=== PATIENT | female | born 1960 | race Caucasian/White ===

== ENCOUNTER 2021-05-08 14:07 | Inpatient (IN) ==
[2021-05-08] MEDS ORDERED: Isovue-370 500 ML BOTTLE IVP ONE (15:19)
[2021-05-08 16:13] LABS: Basophils % 0.4 %; Eosinophils # 0.1 K/mcL (0.0-0.6); Eosinophils % 1.9 %; Hematocrit 34.2 % (35.3-44.9); Hemoglobin 11.2 g/dL (11.5-15.4); Immature Granulocytes % 0.4 % (0-4); Lymphocytes # 0.7 K/mcL (0.6-4.6); Mean Corpuscular HGB Conc 32.7 g/dL (31.6-35.5); Mean Corpuscular Hemoglobin 29.3 pg (28.0-33.3); Mean Corpuscular Volume 89.5 fL (83.0-100.0); Mean Platelet Volume 10.5 fL (9.4-12.4); Monocytes # 0.3 K/mcL (0.0-1.3); Monocytes % 10.4 %; Neutrophils # 1.7 K/mcL (1.6-8.9); Platelet Count 363 K/mcL (140-400); Red Blood Count 3.82 M/mcL (3.82-4.97); Red Cell Distribution Width 13.5 % (11.5-14.5); Segmented Neutrophils % 61.9 %; White Blood Count 2.7 K/mcL (4.3-11.1)
[2021-05-08 16:22] LABS: INR 1.2; Prothrombin Time 13.4 Seconds (9.4-12.1)
[2021-05-08 16:24] LABS: Activated Partial Thrombo Time 24.5 Seconds (26.0-36.0)
[2021-05-08 16:50] LABS: Alanine Aminotransferase 22 Units/L (7-52); Albumin 3.9 g/dL (3.5-5.7); Albumin/Globulin Ratio 1.1 (1.1-2.2); Alkaline Phosphatase 102 Units/L (34-104); Aspartate Amino Transferase 14 Units/L (13-39); BUN/Creatinine Ratio 52 (6-26); Bilirubin,Direct 0.2 mg/dL (0.0-0.2); Bilirubin,Indirect 0.8 mg/dL (0.0-1.0); Blood Urea Nitrogen 29 mg/dL (6-20); Calcium 9.9 mg/dL (8.6-10.3); Carbon Dioxide 27 mEq/L (23-29); Chloride 94 mEq/L (98-107); Ethanol < 10 mg/dL (Less than 10); Globulin 3.4 g/dL (2.4-3.5); Glucose 103 mg/dL (70-105); Osmolality,Calculated 284 (280-300); Potassium 3.7 mEq/L (3.5-5.1); Sodium 134 mEq/L (136-145); Total Protein 7.3 g/dL (6.4-8.9); Troponin I < 0.03 ng/mL (< 0.04); eGFR For African Americans > 60 (> 60); eGFR For Non-African Americans > 60 (> 60)
[2021-05-08 17:02] LABS: Platelet Estimate Normal (Normal)
[2021-05-08] MEDS ORDERED: Piperacillin/Tazobactam 3.375 GM in 0.9 % Sodium Chloride Mini Bag 100 ML IVPB ONE (18:02)
[2021-05-08] MEDS ORDERED: Morphine Sulfate 2 MG/ML SYRINGE IVP ONE (19:00)
[2021-05-08] MEDS ORDERED: 0.9 % Sodium Chloride 1,000 ML IV ONE (19:11)
[2021-05-08] MEDS ORDERED: Naloxone 0.4 MG/ML INJ IVP PRN (19:40)
[2021-05-08] MEDS ORDERED: 0.9 % Sodium Chloride 1,000 ML IVC SCH (21:00)
[2021-05-08] MEDS ORDERED: *HR* Enoxaparin 40 MG/0.4 ML SYRINGE SQ ONE (22:45)
[2021-05-08] MEDS: 0.9 % Sodium Chloride 1,000 ML IVC SCH (23:34)
[2021-05-09 04:30] LABS: Basophils % 0.2 %; Eosinophils # 0.1 K/mcL (0.0-0.6); Eosinophils % 2.9 %; Immature Granulocytes % 0.5 % (0-4); Lymphocytes # 1.1 K/mcL (0.6-4.6); Lymphocytes % 25.3 %; Mean Corpuscular HGB Conc 32.4 g/dL (31.6-35.5); Mean Corpuscular Hemoglobin 29.7 pg (28.0-33.3); Mean Corpuscular Volume 91.5 fL (83.0-100.0); Mean Platelet Volume 10.6 fL (9.4-12.4); Monocytes # 0.6 K/mcL (0.0-1.3); Monocytes % 13.5 %; Neutrophils # 2.4 K/mcL (1.6-8.9); Platelet Count 326 K/mcL (140-400); Red Blood Count 3.17 M/mcL (3.82-4.97); Red Cell Distribution Width 13.4 % (11.5-14.5); Segmented Neutrophils % 57.6 %
[2021-05-09 04:33] LABS: Hemoglobin 9.4 g/dL (11.5-15.4); White Blood Count 4.2 K/mcL (4.3-11.1)
[2021-05-09 04:40] LABS: INR 1.2; Prothrombin Time 13.9 Seconds (9.4-12.1)
[2021-05-09 04:43] LABS: Activated Partial Thrombo Time 30.4 Seconds (26.0-36.0)
[2021-05-09 04:49] LABS: Alanine Aminotransferase 17 Units/L (7-52); Albumin 3.2 g/dL (3.5-5.7); Albumin/Globulin Ratio 1.2 (1.1-2.2); Alkaline Phosphatase 90 Units/L (34-104); Aspartate Amino Transferase 11 Units/L (13-39); BUN/Creatinine Ratio 45 (6-26); Bilirubin,Total 0.5 mg/dL (0.3-1.0); Blood Urea Nitrogen 22 mg/dL (6-20); Calcium 8.6 mg/dL (8.6-10.3); Carbon Dioxide 23 mEq/L (23-29); Chloride 100 mEq/L (98-107); Globulin 2.7 g/dL (2.4-3.5); Glucose 74 mg/dL (70-105); Osmolality,Calculated 282 (280-300); Phosphorous 3.4 mg/dL (2.7-4.5); Potassium 3.4 mEq/L (3.5-5.1); Sodium 135 mEq/L (136-145); Total Protein 5.9 g/dL (6.4-8.9); eGFR For African Americans > 60 (> 60); eGFR For Non-African Americans > 60 (> 60)
[2021-05-09 05:00] LABS: Platelet Estimate Normal (Normal)
[2021-05-09] MEDS: 0.9 % Sodium Chloride 1,000 ML IVC SCH ×2 (05:31→12:01)
[2021-05-09] MEDS: Piperacillin/Tazobactam 3.375 GM in 0.9 % Sodium Chloride Mini Bag 100 ML IVPB SCH ×3 (08:02→23:21)
[2021-05-09] MEDS: Ondansetron ODT 4 MG TAB.RAPDIS SL PRN (08:31)
[2021-05-09] MEDS ORDERED: Lidocaine -MPF 1% 5 ML AMPUL INFILT ONE (09:46)
[2021-05-09] MEDS: *HR* Metoprolol 5 MG/5 ML VIAL IVP PRN (12:02)
[2021-05-09] MEDS ORDERED: D10% in Water 500 ML IVC PRN (12:04)
[2021-05-09] MEDS ORDERED: D5% in Water 1,000 ML IVC PRN (12:22)
[2021-05-09] MEDS ORDERED: *HR* Dextrose 50 % in Water (Syg) 50 ML SYRINGE IVP PRN (12:22)
[2021-05-09] MEDS ORDERED: Dextrose Gel 15 GM/37.5 ML TUBE PO PRN ×2 (12:22)
[2021-05-09] MEDS ORDERED: Clinimix E 5%-15% SOLUTION 2,000 ML with MVI, adult with vitamin K 10 ML IVC SCH (17:00)
[2021-05-09] MEDS: Insulin LISPRO 300 UNITS/3 ML VIAL SUBQ SCH ×3 (17:06→23:22)
[2021-05-10] MEDS: *HR* Metoprolol 5 MG/5 ML VIAL IVP PRN ×3 (01:58→17:15)
[2021-05-10 04:16] LABS: Hematocrit 26.1 % (35.3-44.9); Hemoglobin 8.1 g/dL (11.5-15.4); Mean Corpuscular Volume 93.5 fL (83.0-100.0); Mean Platelet Volume 10.5 fL (9.4-12.4); Platelet Count 228 K/mcL (140-400); Red Blood Count 2.79 M/mcL (3.82-4.97); Red Cell Distribution Width 13.1 % (11.5-14.5); White Blood Count 4.7 K/mcL (4.3-11.1)
[2021-05-10 04:34] LABS: Alanine Aminotransferase 15 Units/L (7-52); Albumin 2.8 g/dL (3.5-5.7); Albumin/Globulin Ratio 1.2 (1.1-2.2); Alkaline Phosphatase 76 Units/L (34-104); Aspartate Amino Transferase 12 Units/L (13-39); BUN/Creatinine Ratio 32 (6-26); Bilirubin,Total 0.3 mg/dL (0.3-1.0); Blood Urea Nitrogen 13 mg/dL (6-20); Calcium 8.1 mg/dL (8.6-10.3); Carbon Dioxide 25 mEq/L (23-29); Chloride 100 mEq/L (98-107); Globulin 2.4 g/dL (2.4-3.5); Glucose 142 mg/dL (70-105); Magnesium 1.7 mg/dL (1.6-2.6); Osmolality,Calculated 275 (280-300); Phosphorous 2.3 mg/dL (2.7-4.5); Potassium 3.6 mEq/L (3.5-5.1); Sodium 131 mEq/L (136-145); Total Protein 5.2 g/dL (6.4-8.9); Triglycerides 191 mg/dL (< 150); eGFR For African Americans > 60 (> 60); eGFR For Non-African Americans > 60 (> 60)
[2021-05-10] MEDS: Insulin LISPRO 300 UNITS/3 ML VIAL SUBQ SCH ×5 (05:17→20:30)
[2021-05-10] MEDS: *HR* Enoxaparin 40 MG/0.4 ML SYRINGE SQ SCH (05:17)
[2021-05-10] MEDS ORDERED: Morphine Sulfate 2 MG/ML SYRINGE IVP ONE (08:35)
[2021-05-10] MEDS: Piperacillin/Tazobactam 3.375 GM in 0.9 % Sodium Chloride Mini Bag 100 ML IVPB SCH ×2 (08:46→15:56)
[2021-05-10] MEDS ORDERED: Fat Emulsion 250 ML IVPB SCH (17:00)
[2021-05-10] MEDS ORDERED: Clinimix E 5%-15% SOLUTION 2,000 ML with MVI, adult with vitamin K 10 ML IVC SCH (17:00)
[2021-05-10 17:19] LABS: Bilirubin,Urine Negative (Negative); Blood,Urine Negative (Negative); Clarity,Urine Clear (Clear); Color,Urine Colorless (Yellow); Glucose,Urine (UA) Normal (Normal); Ketones,Urine Negative (Negative); Leukocyte Esterase,Urine Negative (Negative); Nitrite,Urine Negative (Negative); Protein,Urine Trace mg/dL (Neg-Trace); Specific Gravity,Urine 1.015 (1.010-1.025); Urobilinogen,Urine Normal (Normal)
[2021-05-10 17:34] LABS: Amphetamine Screen,Urine Negative ng/mL (Cutoff=1000); Barbiturate Screen,Urine Negative ng/mL (Cutoff=200); Benzodiazepines Screen,Urine Negative ng/mL (Cutoff=200); Cannabinoid Screen,Urine Negative ng/mL (Cutoff = 50); Cocaine Screen,Urine Negative ng/mL (Cutoff= 300); Opiate Screen,Urine Positive ng/mL (Cutoff=300); Phencyclidine Screen,Urine Negative ng/mL (Cutoff=25)
[2021-05-11] MEDS: Piperacillin/Tazobactam 3.375 GM in 0.9 % Sodium Chloride Mini Bag 100 ML IVPB SCH ×2 (00:34→11:23)
[2021-05-11] MEDS: Insulin LISPRO 300 UNITS/3 ML VIAL SUBQ SCH ×6 (00:35→20:41)
[2021-05-11] MEDS: *HR* Enoxaparin 40 MG/0.4 ML SYRINGE SQ SCH (05:06)
[2021-05-11 06:41] LABS: Hematocrit 26.4 % (35.3-44.9); Hemoglobin 8.7 g/dL (11.5-15.4); Mean Corpuscular Hemoglobin 29.8 pg (28.0-33.3); Mean Corpuscular Volume 90.4 fL (83.0-100.0); Mean Platelet Volume 10.7 fL (9.4-12.4); Nucleated Red Blood Cells 0.7 /100 WBC (0); Platelet Count 210 K/mcL (140-400); Red Blood Count 2.92 M/mcL (3.82-4.97); White Blood Count 4.4 K/mcL (4.3-11.1)
[2021-05-11 06:58] LABS: Alanine Aminotransferase 13 Units/L (7-52); Albumin 2.9 g/dL (3.5-5.7); Albumin/Globulin Ratio 1.1 (1.1-2.2); Alkaline Phosphatase 79 Units/L (34-104); Aspartate Amino Transferase 12 Units/L (13-39); BUN/Creatinine Ratio 24 (6-26); Bilirubin,Indirect 0.2 mg/dL (0.0-1.0); Bilirubin,Total 0.2 mg/dL (0.3-1.0); Blood Urea Nitrogen 11 mg/dL (6-20); Calcium 8.5 mg/dL (8.6-10.3); Carbon Dioxide 28 mEq/L (23-29); Chloride 99 mEq/L (98-107); Globulin 2.7 g/dL (2.4-3.5); Glucose 131 mg/dL (70-105); Magnesium 1.7 mg/dL (1.6-2.6); Osmolality,Calculated 277 (280-300); Phosphorous 2.8 mg/dL (2.7-4.5); Potassium 3.4 mEq/L (3.5-5.1); Sodium 133 mEq/L (136-145); Total Protein 5.6 g/dL (6.4-8.9); eGFR For African Americans > 60 (> 60); eGFR For Non-African Americans > 60 (> 60)
[2021-05-11] MEDS ORDERED: Isovue-370 500 ML BOTTLE IVP ONE (07:46)
[2021-05-11 07:53] LABS: Anisocytosis 1+ (Not Present); Eosinophils # 0.2 K/mcL (0.0-0.6); Lymphocytes # 1.3 K/mcL (0.6-4.6); Monocytes # 0.3 K/mcL (0.0-1.3); Neutrophils # 2.6 K/mcL (1.6-8.9); Platelet Estimate Normal (Normal); Polychromasia 1+ (Not Present); Reactive Lymphocytes Present (Not Present)
[2021-05-11] MEDS ORDERED: Isovue-370 500 ML BOTTLE PO ONE ×2 (10:25→10:26)
[2021-05-11] MEDS ORDERED: D10% in Water 500 ML IVC PRN (12:42)
[2021-05-11] MEDS: Pantoprazole 40 MG VIAL IVP SCH (14:18)
[2021-05-11] MEDS ORDERED: Clinimix E 5%-15% SOLUTION 2,000 ML with MVI, adult with vitamin K 10 ML IVC SCH (17:00)
[2021-05-11] MEDS: *HR* Metoprolol 5 MG/5 ML VIAL IVP PRN (17:02)
[2021-05-12] MEDS: Piperacillin/Tazobactam 3.375 GM in 0.9 % Sodium Chloride Mini Bag 100 ML IVPB SCH ×4 (00:57→17:04)
[2021-05-12] MEDS: Insulin LISPRO 300 UNITS/3 ML VIAL SUBQ SCH ×6 (01:00→21:11)
[2021-05-12 04:51] LABS: Basophils % 0.6 %; Eosinophils % 0.6 %; Hematocrit 26.7 % (35.3-44.9); Hemoglobin 8.7 g/dL (11.5-15.4); Immature Granulocytes % 1.1 % (0-4); Lymphocytes # 1.2 K/mcL (0.6-4.6); Lymphocytes % 32.1 %; Mean Corpuscular HGB Conc 32.6 g/dL (31.6-35.5); Mean Corpuscular Hemoglobin 29.7 pg (28.0-33.3); Mean Corpuscular Volume 91.1 fL (83.0-100.0); Mean Platelet Volume 10.6 fL (9.4-12.4); Monocytes # 0.7 K/mcL (0.0-1.3); Neutrophils # 1.7 K/mcL (1.6-8.9); Nucleated Red Blood Cells 0.8 /100 WBC (0); Platelet Count 222 K/mcL (140-400); Red Blood Count 2.93 M/mcL (3.82-4.97); Red Cell Distribution Width 13.2 % (11.5-14.5); Segmented Neutrophils % 47.6 %; White Blood Count 3.6 K/mcL (4.3-11.1)
[2021-05-12 04:56] LABS: Alanine Aminotransferase 15 Units/L (7-52); Albumin 2.9 g/dL (3.5-5.7); Alkaline Phosphatase 77 Units/L (34-104); Aspartate Amino Transferase 14 Units/L (13-39); BUN/Creatinine Ratio 36 (6-26); Bilirubin,Total 0.3 mg/dL (0.3-1.0); Blood Urea Nitrogen 14 mg/dL (6-20); Calcium 8.7 mg/dL (8.6-10.3); Carbon Dioxide 27 mEq/L (23-29); Chloride 100 mEq/L (98-107); Globulin 2.9 g/dL (2.4-3.5); Glucose 124 mg/dL (70-105); Magnesium 1.8 mg/dL (1.6-2.6); Osmolality,Calculated 274 (280-300); Phosphorous 3.8 mg/dL (2.7-4.5); Potassium 4.2 mEq/L (3.5-5.1); Sodium 131 mEq/L (136-145); Total Protein 5.8 g/dL (6.4-8.9); eGFR For African Americans > 60 (> 60); eGFR For Non-African Americans > 60 (> 60)
[2021-05-12 05:17] LABS: Ferritin 307 ng/mL (10-120); Iron < 10 mcg/dL (50-170); Transferrin 156 mg/dL (203-362)
[2021-05-12 05:21] LABS: Folate 11.9 ng/mL (3.0-16.0)
[2021-05-12] MEDS: *HR* Enoxaparin 40 MG/0.4 ML SYRINGE SQ SCH (05:26)
[2021-05-12] MEDS: Pantoprazole 40 MG VIAL IVP SCH (05:26)
[2021-05-12 05:41] LABS: Anisocytosis 1+ (Not Present); Hypochromasia Present (Not Present); Microcytosis Present (Not Present); Platelet Estimate Normal (Normal); Polychromasia 1+ (Not Present)
[2021-05-12 05:42] LABS: Reactive Lymphocytes Present (Not Present)
[2021-05-12] MEDS: Sucralfate 1 GM TABLET PO SCH ×3 (12:48→21:18)
[2021-05-13] MEDS: Insulin LISPRO 300 UNITS/3 ML VIAL SUBQ SCH ×6 (00:25→21:07)
[2021-05-13] MEDS: Piperacillin/Tazobactam 3.375 GM in 0.9 % Sodium Chloride Mini Bag 100 ML IVPB SCH ×3 (00:48→17:55)
[2021-05-13] MEDS: *HR* Enoxaparin 40 MG/0.4 ML SYRINGE SQ SCH (06:42)
[2021-05-13 07:02] LABS: Hemoglobin 8.9 g/dL (11.5-15.4); Mean Corpuscular Hemoglobin 29.4 pg (28.0-33.3); Mean Corpuscular Volume 89.1 fL (83.0-100.0); Mean Platelet Volume 10.5 fL (9.4-12.4); Platelet Count 219 K/mcL (140-400); Red Blood Count 3.03 M/mcL (3.82-4.97); Red Cell Distribution Width 13.4 % (11.5-14.5); White Blood Count 3.3 K/mcL (4.3-11.1)
[2021-05-13 07:20] LABS: BUN/Creatinine Ratio 28 (6-26); Blood Urea Nitrogen 13 mg/dL (6-20); Calcium 8.8 mg/dL (8.6-10.3); Carbon Dioxide 27 mEq/L (23-29); Chloride 98 mEq/L (98-107); Glucose 96 mg/dL (70-105); Magnesium 1.6 mg/dL (1.6-2.6); Osmolality,Calculated 276 (280-300); Phosphorous 3.6 mg/dL (2.7-4.5); Potassium 4.2 mEq/L (3.5-5.1); Sodium 133 mEq/L (136-145); eGFR For African Americans > 60 (> 60); eGFR For Non-African Americans > 60 (> 60)
[2021-05-13 08:22] LABS: Lymphocytes # 0.7 K/mcL (0.6-4.6); Monocytes # 0.5 K/mcL (0.0-1.3); Neutrophils # 2.1 K/mcL (1.6-8.9); Platelet Estimate Normal (Normal); Reactive Lymphocytes Present (Not Present)
[2021-05-13] MEDS: Pantoprazole 40 MG VIAL IVP SCH (09:10)
[2021-05-13] MEDS: Sucralfate 1 GM TABLET PO SCH ×4 (09:10→21:31)
[2021-05-13] MEDS: Ondansetron ODT 4 MG TAB.RAPDIS SL PRN ×2 (09:32→18:08)
[2021-05-14] MEDS: Insulin LISPRO 300 UNITS/3 ML VIAL SUBQ SCH ×6 (00:36→21:26)
[2021-05-14] MEDS: *HR* Metoprolol 5 MG/5 ML VIAL IVP PRN ×2 (04:54→15:58)
[2021-05-14] MEDS: Piperacillin/Tazobactam 3.375 GM in 0.9 % Sodium Chloride Mini Bag 100 ML IVPB SCH ×3 (04:56→15:58)
[2021-05-14] MEDS: *HR* Enoxaparin 40 MG/0.4 ML SYRINGE SQ SCH (05:03)
[2021-05-14] MEDS ORDERED: *HR* Metoprolol 5 MG/5 ML VIAL IVP ONE (06:41)
[2021-05-14] MEDS: Pantoprazole 40 MG VIAL IVP SCH (07:49)
[2021-05-14] MEDS: Sucralfate 1 GM TABLET PO SCH ×4 (07:49→21:27)
[2021-05-14] MEDS ORDERED: *HR* Heparin 5,000 UNIT/ML VIAL IVP ONE (08:26)
[2021-05-14] MEDS ORDERED: *HR* Heparin 5,000 UNIT/ML VIAL IVP PRN (08:26)
[2021-05-14] MEDS ORDERED: Amiodarone Premix 150 MG/100 ML BAG IVPB ONE (08:28)
[2021-05-14] MEDS ORDERED: Amiodarone Premix 360 MG/200 ML BAG IVC ONE (08:30)
[2021-05-14] MEDS ORDERED: *HR* Digoxin 0.5 MG/2 ML AMPUL IVP STA (08:43)
[2021-05-14] MEDS ORDERED: *HR* Digoxin 0.5 MG/2 ML AMPUL IVP SCH ×2 (09:00→12:00)
[2021-05-14 11:02] LABS: Hematocrit 28.8 % (35.3-44.9); Hemoglobin 9.4 g/dL (11.5-15.4); Mean Corpuscular HGB Conc 32.6 g/dL (31.6-35.5); Mean Corpuscular Hemoglobin 28.7 pg (28.0-33.3); Mean Corpuscular Volume 87.8 fL (83.0-100.0); Mean Platelet Volume 10.4 fL (9.4-12.4); Platelet Count 229 K/mcL (140-400); Red Blood Count 3.28 M/mcL (3.82-4.97); Red Cell Distribution Width 13.3 % (11.5-14.5); White Blood Count 3.5 K/mcL (4.3-11.1)
[2021-05-14 11:09] LABS: Heparin anti-factor XA UFH 0.33 IU/mL (0.30-0.70)
[2021-05-14 11:10] LABS: INR 1.3
[2021-05-14 11:22] LABS: Monocytes # 0.4 K/mcL (0.0-1.3); Neutrophils # 2.1 K/mcL (1.6-8.9); Platelet Estimate Normal (Normal); Reactive Lymphocytes Present (Not Present)
[2021-05-14 11:25] LABS: BUN/Creatinine Ratio 25 (6-26); Blood Urea Nitrogen 13 mg/dL (6-20); Calcium 8.9 mg/dL (8.6-10.3); Carbon Dioxide 25 mEq/L (23-29); Chloride 99 mEq/L (98-107); Glucose 102 mg/dL (70-105); Magnesium 1.7 mg/dL (1.6-2.6); Osmolality,Calculated 278 (280-300); Potassium 4.5 mEq/L (3.5-5.1); Sodium 134 mEq/L (136-145); eGFR For African Americans > 60 (> 60); eGFR For Non-African Americans > 60 (> 60)
[2021-05-14] MEDS: Heparin 25,000UNIT/250ML 1/2NS 25,000 UNIT/250 ML IV.SOLN IVC SCH (11:27)
[2021-05-14 11:58] LABS: Thyroid Stimulating Hormone < 0.010 mcIU/mL (0.340-5.600)
[2021-05-14] MEDS: *HR* Digoxin 0.5 MG/2 ML AMPUL IVP SCH ×2 (12:09→18:11)
[2021-05-14] MEDS ORDERED: Amiodarone Premix 360 MG/200 ML BAG IVC SCH (14:31)
[2021-05-14] MEDS ORDERED: Perflutren Lipid Microsphere 1.3 ML in 0.9 % Sodium Chloride 8.7 ML IVP PRN (15:33)
[2021-05-15] MEDS: Insulin LISPRO 300 UNITS/3 ML VIAL SUBQ SCH ×4 (00:59→14:23)
[2021-05-15] MEDS: Piperacillin/Tazobactam 3.375 GM in 0.9 % Sodium Chloride Mini Bag 100 ML IVPB SCH ×3 (00:59→17:02)
[2021-05-15] MEDS: *HR* Metoprolol 5 MG/5 ML VIAL IVP PRN (05:01)
[2021-05-15 05:25] LABS: Basophils % 0.8 %; Eosinophils % 0.6 %; Hematocrit 27.8 % (35.3-44.9); Hemoglobin 8.8 g/dL (11.5-15.4); Immature Granulocytes % 0.3 % (0-4); Lymphocytes # 1.6 K/mcL (0.6-4.6); Lymphocytes % 43.1 %; Mean Corpuscular HGB Conc 31.7 g/dL (31.6-35.5); Mean Corpuscular Hemoglobin 28.3 pg (28.0-33.3); Mean Corpuscular Volume 89.4 fL (83.0-100.0); Mean Platelet Volume 10.7 fL (9.4-12.4); Monocytes # 0.6 K/mcL (0.0-1.3); Neutrophils # 1.4 K/mcL (1.6-8.9); Platelet Count 272 K/mcL (140-400); Red Blood Count 3.11 M/mcL (3.82-4.97); Red Cell Distribution Width 13.5 % (11.5-14.5); Segmented Neutrophils % 39.2 %; White Blood Count 3.6 K/mcL (4.3-11.1)
[2021-05-15 05:50] LABS: BUN/Creatinine Ratio 21 (6-26); Blood Urea Nitrogen 11 mg/dL (6-20); Carbon Dioxide 27 mEq/L (23-29); Chloride 97 mEq/L (98-107); Digoxin 1.1 ng/mL (0.8-2.0); Glucose 101 mg/dL (70-105); Magnesium 1.7 mg/dL (1.6-2.6); Osmolality,Calculated 276 (280-300); Platelet Estimate Normal (Normal); Potassium 3.7 mEq/L (3.5-5.1); Sodium 133 mEq/L (136-145); eGFR For African Americans > 60 (> 60); eGFR For Non-African Americans > 60 (> 60)
[2021-05-15 06:07] LABS: Thyroid Stimulating Hormone < 0.010 mcIU/mL (0.340-5.600); Triiodothyronine (T3) Free 12.11 pg/mL (2.50-3.90)
[2021-05-15] MEDS: Sucralfate 1 GM TABLET PO SCH ×4 (07:31→21:48)
[2021-05-15] MEDS: *HR* Digoxin 0.25 MG TABLET PO SCH (08:42)
[2021-05-15] MEDS: Pantoprazole 40 MG VIAL IVP SCH (08:42)
[2021-05-15] MEDS ORDERED: methIMAzole 5 MG TABLET PO SCH (09:00)
[2021-05-15] MEDS: Heparin 25,000UNIT/250ML 1/2NS 25,000 UNIT/250 ML IV.SOLN IVC SCH (13:25)
[2021-05-15] MEDS: *HR* Heparin 5,000 UNIT/ML VIAL IVP PRN (21:47)
[2021-05-16 05:12] LABS: Basophils % 0.6 %; Eosinophils % 0.6 %; Hematocrit 25.1 % (35.3-44.9); Hemoglobin 8.3 g/dL (11.5-15.4); Immature Granulocytes % 0.3 % (0-4); Lymphocytes # 1.3 K/mcL (0.6-4.6); Lymphocytes % 36.4 %; Mean Corpuscular HGB Conc 33.1 g/dL (31.6-35.5); Mean Corpuscular Hemoglobin 29.3 pg (28.0-33.3); Mean Corpuscular Volume 88.7 fL (83.0-100.0); Mean Platelet Volume 10.9 fL (9.4-12.4); Monocytes # 0.7 K/mcL (0.0-1.3); Monocytes % 18.6 %; Neutrophils # 1.6 K/mcL (1.6-8.9); Platelet Count 261 K/mcL (140-400); Red Blood Count 2.83 M/mcL (3.82-4.97); Red Cell Distribution Width 13.5 % (11.5-14.5); Segmented Neutrophils % 43.5 %; White Blood Count 3.6 K/mcL (4.3-11.1)
[2021-05-16 05:25] LABS: BUN/Creatinine Ratio 24 (6-26); Blood Urea Nitrogen 11 mg/dL (6-20); Calcium 8.4 mg/dL (8.6-10.3); Carbon Dioxide 29 mEq/L (23-29); Chloride 97 mEq/L (98-107); Digoxin 1.2 ng/mL (0.8-2.0); Glucose 88 mg/dL (70-105); Magnesium 1.6 mg/dL (1.6-2.6); Osmolality,Calculated 275 (280-300); Potassium 3.6 mEq/L (3.5-5.1); Sodium 133 mEq/L (136-145); eGFR For African Americans > 60 (> 60); eGFR For Non-African Americans > 60 (> 60)
[2021-05-16 05:59] LABS: Platelet Estimate Normal (Normal)
[2021-05-16] MEDS: Sucralfate 1 GM TABLET PO SCH ×4 (08:16→20:56)
[2021-05-16] MEDS: *HR* Digoxin 0.25 MG TABLET PO SCH (08:16)
[2021-05-16] MEDS: methIMAzole 5 MG TABLET PO SCH (08:17)
[2021-05-16] MEDS ORDERED: Furosemide 40 MG/4 ML VIAL IVP ONE (08:40)
[2021-05-16] MEDS: Heparin 25,000UNIT/250ML 1/2NS 25,000 UNIT/250 ML IV.SOLN IVC SCH (17:21)
[2021-05-16] MEDS ORDERED: *HR* Digoxin 0.5 MG/2 ML AMPUL IVP ONE (18:09)
[2021-05-16] MEDS: *HR* Heparin 5,000 UNIT/ML VIAL IVP PRN (18:50)
[2021-05-16] MEDS: Apixaban 5 MG TABLET PO SCH (20:56)
[2021-05-17 01:39] LABS: Basophils % 0.9 %; Hematocrit 28.1 % (35.3-44.9); Hemoglobin 9.1 g/dL (11.5-15.4); Immature Granulocytes % 0.4 % (0-4); Lymphocytes # 0.9 K/mcL (0.6-4.6); Lymphocytes % 18.3 %; Mean Corpuscular HGB Conc 32.4 g/dL (31.6-35.5); Mean Corpuscular Hemoglobin 28.8 pg (28.0-33.3); Mean Corpuscular Volume 88.9 fL (83.0-100.0); Monocytes # 0.8 K/mcL (0.0-1.3); Monocytes % 16.8 %; Platelet Count 322 K/mcL (140-400); Red Blood Count 3.16 M/mcL (3.82-4.97); Red Cell Distribution Width 13.7 % (11.5-14.5); Segmented Neutrophils % 63.6 %; White Blood Count 4.7 K/mcL (4.3-11.1)
[2021-05-17 01:58] LABS: BUN/Creatinine Ratio 37 (6-26); Blood Urea Nitrogen 14 mg/dL (6-20); Calcium 9.1 mg/dL (8.6-10.3); Carbon Dioxide 25 mEq/L (23-29); Chloride 93 mEq/L (98-107); Glucose 76 mg/dL (70-105); Magnesium 1.6 mg/dL (1.6-2.6); Osmolality,Calculated 273 (280-300); Potassium 3.9 mEq/L (3.5-5.1); Sodium 132 mEq/L (136-145); eGFR For African Americans > 60 (> 60); eGFR For Non-African Americans > 60 (> 60)
[2021-05-17] MEDS: Apixaban 5 MG TABLET PO SCH ×2 (08:17→22:43)
[2021-05-17] MEDS: Sucralfate 1 GM TABLET PO SCH ×4 (08:17→22:42)
[2021-05-17] MEDS: *HR* Digoxin 0.25 MG TABLET PO SCH (08:17)
[2021-05-17] MEDS: methIMAzole 5 MG TABLET PO SCH (08:17)
[2021-05-18 01:39] LABS: Basophils % 0.6 %; Eosinophils % 0.2 %; Hematocrit 28.3 % (35.3-44.9); Hemoglobin 8.8 g/dL (11.5-15.4); Immature Granulocytes % 0.4 % (0-4); Lymphocytes # 0.9 K/mcL (0.6-4.6); Lymphocytes % 17.8 %; Mean Corpuscular HGB Conc 31.1 g/dL (31.6-35.5); Mean Corpuscular Hemoglobin 27.9 pg (28.0-33.3); Mean Corpuscular Volume 89.8 fL (83.0-100.0); Mean Platelet Volume 10.7 fL (9.4-12.4); Monocytes # 0.7 K/mcL (0.0-1.3); Monocytes % 14.4 %; Neutrophils # 3.4 K/mcL (1.6-8.9); Platelet Count 331 K/mcL (140-400); Red Blood Count 3.15 M/mcL (3.82-4.97); Red Cell Distribution Width 13.9 % (11.5-14.5); Segmented Neutrophils % 66.6 %; White Blood Count 5.1 K/mcL (4.3-11.1)
[2021-05-18 02:00] LABS: BUN/Creatinine Ratio 31 (6-26); Blood Urea Nitrogen 11 mg/dL (6-20); Calcium 9.1 mg/dL (8.6-10.3); Carbon Dioxide 27 mEq/L (23-29); Chloride 94 mEq/L (98-107); Glucose 87 mg/dL (70-105); Magnesium 1.5 mg/dL (1.6-2.6); Osmolality,Calculated 273 (280-300); Potassium 3.9 mEq/L (3.5-5.1); Sodium 132 mEq/L (136-145); eGFR For African Americans > 60 (> 60); eGFR For Non-African Americans > 60 (> 60)
[2021-05-18] MEDS: *HR* Metoprolol 5 MG/5 ML VIAL IVP PRN ×2 (04:34→17:08)
[2021-05-18] MEDS: Sucralfate 1 GM TABLET PO SCH ×4 (08:16→22:47)
[2021-05-18] MEDS: *HR* Digoxin 0.25 MG TABLET PO SCH (08:16)
[2021-05-18] MEDS: Metoprolol XL (24 HR) Succ 50 MG TAB.ER.24H PO SCH (08:17)
[2021-05-18] MEDS: methIMAzole 5 MG TABLET PO SCH (08:17)
[2021-05-18] MEDS: Apixaban 5 MG TABLET PO SCH ×2 (08:17→22:46)
[2021-05-19 01:32] LABS: Hematocrit 30.5 % (35.3-44.9); Hemoglobin 9.6 g/dL (11.5-15.4); Immature Granulocytes % 0.5 % (0-4); Lymphocytes % 25.4 %; Mean Corpuscular HGB Conc 31.5 g/dL (31.6-35.5); Mean Corpuscular Hemoglobin 28.6 pg (28.0-33.3); Mean Corpuscular Volume 90.8 fL (83.0-100.0); Mean Platelet Volume 10.8 fL (9.4-12.4); Monocytes # 0.8 K/mcL (0.0-1.3); Monocytes % 19.6 %; Neutrophils # 2.1 K/mcL (1.6-8.9); Platelet Count 359 K/mcL (140-400); Red Blood Count 3.36 M/mcL (3.82-4.97); Segmented Neutrophils % 53.5 %
[2021-05-19 01:52] LABS: BUN/Creatinine Ratio 38 (6-26); Blood Urea Nitrogen 13 mg/dL (6-20); Carbon Dioxide 25 mEq/L (23-29); Chloride 97 mEq/L (98-107); Glucose 80 mg/dL (70-105); Magnesium 1.6 mg/dL (1.6-2.6); Osmolality,Calculated 279 (280-300); Potassium 3.9 mEq/L (3.5-5.1); Sodium 135 mEq/L (136-145); eGFR For African Americans > 60 (> 60); eGFR For Non-African Americans > 60 (> 60)
[2021-05-19 03:07] LABS: Platelet Estimate Normal (Normal)
[2021-05-19 03:08] LABS: Reactive Lymphocytes Present (Not Present)
[2021-05-19] MEDS: methIMAzole 5 MG TABLET PO SCH (08:39)
[2021-05-19] MEDS: *HR* Digoxin 0.25 MG TABLET PO SCH (08:39)
[2021-05-19] MEDS: Metoprolol XL (24 HR) Succ 50 MG TAB.ER.24H PO SCH (08:39)
[2021-05-19] MEDS: Apixaban 5 MG TABLET PO SCH ×2 (08:39→20:34)
[2021-05-19] MEDS: Sucralfate 1 GM TABLET PO SCH ×4 (08:39→20:34)
[2021-05-19] MEDS: Ondansetron ODT 4 MG TAB.RAPDIS SL PRN (09:54)
[2021-05-19] MEDS: *HR* Metoprolol 5 MG/5 ML VIAL IVP PRN ×2 (16:43→20:33)
[2021-05-19] MEDS ORDERED: *HR* Metoprolol 5 MG/5 ML VIAL IVP ONE (22:08)
[2021-05-20] MEDS: *HR* Metoprolol 5 MG/5 ML VIAL IVP PRN ×5 (00:30→23:37)
[2021-05-20 05:25] LABS: Basophils % 0.7 %; Eosinophils % 0.4 %; Hematocrit 30.6 % (35.3-44.9); Hemoglobin 9.4 g/dL (11.5-15.4); Immature Granulocytes % 0.4 % (0-4); Lymphocytes % 18.2 %; Mean Corpuscular HGB Conc 30.7 g/dL (31.6-35.5); Mean Corpuscular Hemoglobin 27.3 pg (28.0-33.3); Mean Platelet Volume 10.6 fL (9.4-12.4); Monocytes # 0.9 K/mcL (0.0-1.3); Monocytes % 15.5 %; Neutrophils # 3.6 K/mcL (1.6-8.9); Platelet Count 410 K/mcL (140-400); Red Blood Count 3.44 M/mcL (3.82-4.97); Red Cell Distribution Width 14.5 % (11.5-14.5); Segmented Neutrophils % 64.8 %; White Blood Count 5.5 K/mcL (4.3-11.1)
[2021-05-20 05:40] LABS: Large Platelets Present (Not Present); Platelet Estimate Increased (Normal)
[2021-05-20 05:41] LABS: BUN/Creatinine Ratio 52 (6-26); Blood Urea Nitrogen 23 mg/dL (6-20); Calcium 9.7 mg/dL (8.6-10.3); Carbon Dioxide 25 mEq/L (23-29); Chloride 94 mEq/L (98-107); Glucose 90 mg/dL (70-105); Magnesium 1.6 mg/dL (1.6-2.6); Osmolality,Calculated 273 (280-300); Potassium 3.8 mEq/L (3.5-5.1); Sodium 130 mEq/L (136-145); eGFR For African Americans > 60 (> 60); eGFR For Non-African Americans > 60 (> 60)
[2021-05-20] MEDS: Sucralfate 1 GM TABLET PO SCH ×4 (08:38→21:41)
[2021-05-20] MEDS: methIMAzole 5 MG TABLET PO SCH (08:38)
[2021-05-20] MEDS: *HR* Digoxin 0.25 MG TABLET PO SCH (08:38)
[2021-05-20] MEDS: Apixaban 5 MG TABLET PO SCH ×2 (08:38→21:41)
[2021-05-20] MEDS: Metoprolol XL (24 HR) Succ 50 MG TAB.ER.24H PO SCH (08:38)
[2021-05-20] MEDS: Ondansetron ODT 4 MG TAB.RAPDIS SL PRN (11:40)
[2021-05-21] MEDS ORDERED: 0.9 % Sodium Chloride 500 ML IV ONE (02:21)
[2021-05-21 02:43] LABS: Basophils % 0.7 %; Eosinophils % 0.4 %; Hematocrit 32.4 % (35.3-44.9); Hemoglobin 10.5 g/dL (11.5-15.4); Immature Granulocytes % 0.7 % (0-4); Lymphocytes % 22.4 %; Mean Corpuscular HGB Conc 32.4 g/dL (31.6-35.5); Mean Corpuscular Hemoglobin 28.6 pg (28.0-33.3); Mean Corpuscular Volume 88.3 fL (83.0-100.0); Mean Platelet Volume 10.3 fL (9.4-12.4); Monocytes # 0.8 K/mcL (0.0-1.3); Neutrophils # 2.7 K/mcL (1.6-8.9); Platelet Count 390 K/mcL (140-400); Red Blood Count 3.67 M/mcL (3.82-4.97); Red Cell Distribution Width 14.6 % (11.5-14.5); Segmented Neutrophils % 58.8 %; White Blood Count 4.6 K/mcL (4.3-11.1)
[2021-05-21 03:02] LABS: Alanine Aminotransferase 12 Units/L (7-52); Albumin/Globulin Ratio 0.9 (1.1-2.2); Alkaline Phosphatase 68 Units/L (34-104); Aspartate Amino Transferase 19 Units/L (13-39); BUN/Creatinine Ratio 37 (6-26); Bilirubin,Total 0.4 mg/dL (0.3-1.0); Blood Urea Nitrogen 15 mg/dL (6-20); Calcium 9.2 mg/dL (8.6-10.3); Carbon Dioxide 26 mEq/L (23-29); Chloride 94 mEq/L (98-107); Globulin 3.4 g/dL (2.4-3.5); Glucose 77 mg/dL (70-105); Osmolality,Calculated 272 (280-300); Potassium 3.9 mEq/L (3.5-5.1); Sodium 131 mEq/L (136-145); Total Protein 6.4 g/dL (6.4-8.9); eGFR For African Americans > 60 (> 60); eGFR For Non-African Americans > 60 (> 60)
[2021-05-21 04:10] LABS: Anisocytosis 1+ (Not Present); Platelet Estimate Normal (Normal); Polychromasia 1+ (Not Present); Reactive Lymphocytes Present (Not Present)
[2021-05-21] MEDS ORDERED: 0.9 % Sodium Chloride 1,000 ML IV ONE (08:08)
[2021-05-21] MEDS: methIMAzole 5 MG TABLET PO SCH (08:46)
[2021-05-21] MEDS: Apixaban 5 MG TABLET PO SCH ×2 (08:46→20:37)
[2021-05-21] MEDS: Sucralfate 1 GM TABLET PO SCH ×4 (08:46→20:37)
[2021-05-21] MEDS: *HR* Digoxin 0.25 MG TABLET PO SCH (08:46)
[2021-05-21] MEDS: Metoprolol XL (24 HR) Succ 50 MG TAB.ER.24H PO SCH (10:07)
[2021-05-21] MEDS ORDERED: Gadolinium Contrast Agent (WT Based) IV PRN (12:04)
[2021-05-21] MEDS: Ondansetron ODT 4 MG TAB.RAPDIS SL PRN (14:40)
[2021-05-21] MEDS: *HR* Metoprolol 5 MG/5 ML VIAL IVP PRN ×2 (17:00→23:45)
[2021-05-22 01:09] LABS: ABG Base Excess 1 mEq/L (-2 to 3); ABG HCO3 22 mEq/L (21-27); ABG Oxygen Saturation 98 % (95-98); ABG PCO2 23 mmHg (35-45); ABG PH 7.59 pH Units (7.32-7.45); ABG PO2 89 mmHg (85-104); ABG TCO2 22 mEq/L (20-26)
[2021-05-22 04:05] VITALS: O2SAT 92
[2021-05-22] MEDS: Sucralfate 1 GM TABLET PO SCH ×2 (08:13→10:35)
[2021-05-22] MEDS: *HR* Digoxin 0.25 MG TABLET PO SCH (08:13)
[2021-05-22] MEDS: Metoprolol XL (24 HR) Succ 50 MG TAB.ER.24H PO SCH (08:13)
[2021-05-22] MEDS: Apixaban 5 MG TABLET PO SCH (08:13)
[2021-05-22] MEDS: methIMAzole 5 MG TABLET PO SCH (08:14)
[2021-05-22 16:21] VITALS: BP 122/76; PULSE 123; TEMP 99.5
[2021-05-22 16:39] LABS: Adenovirus Not Detected (Not Detect); Bordetella Pertussis Not Detected (Not Detect); Chlamydophila pneumoniae Not Detected (Not Detect); Coronavirus 229E Not Detected (Not Detect); Coronavirus HKU1 Not Detected (Not Detect); Coronavirus NL63 Not Detected (Not Detect); Coronavirus OC43 Not Detected (Not Detect); Human Metapneumovirus Not Detected (Not Detect); Human Rhinovirus/Enterovirus Not Detected (Not Detect); Influenza A Subtype 2009 H1 Not Detected (Not Detect); Influenza B Not Detected (Not Detect); Mycoplasma pneumoniae Not Detected (Not Detect); Parainfluenza Virus 1 Not Detected (Not Detect); Parainfluenza Virus 2 Not Detected (Not Detect); Parainfluenza Virus 3 Not Detected (Not Detect); Parainfluenza Virus 4 Not Detected (Not Detect); Respiratory Syncytial Virus Not Detected (Not Detect); SARS-CoV-2 Not Detected (Not Detect)
== END 2021-05-22 18:56 | DRG 871 ==
LOC: EMEROOARM 14:07 → 3ANU 14:07 → SUATTDRO 19:40 → 3ANU 20:39
PROVIDERS: ADMIT Internal Medicine; ATTEND Pharmacist